=== PATIENT | female | born 1980 | race Caucasian/White ===

== ENCOUNTER 2021-08-21 20:31 | Emergency (ER) | payer OTHER ==
[~2021-08-21 20:31] MED LIST: CATAPRES0.2 MG PO; IBUPROFEN600 MG PO
[2021-08-21 21:52] LABS: HEMOGLOBIN 11.9 gm/dl (12.3-15.3); RED BLOOD COUNT 4.21 M/UL (4.00-5.10); WHITE BLOOD COUNT 8.9 K/UL (4.5-11.0)
[2021-08-21 22:19] LABS: BUN/CREATININE RATIO 17 (0-10)
[2021-08-22] MEDS ORDERED: PSEUDOEPHEDRINE30 MG PO (00:24)
[2021-08-22] MEDS ORDERED: FLONASE 0.05% N16 GM (00:24)
[2021-08-22] MEDS ORDERED: AMOXICILLIN500 MG PO (00:29)
== END 2021-08-22 00:50 | disposition home or self-care (01) ==
LOC: ER1 20:31
PROVIDERS: Physician Assistant
DX: J01.90 Acute sinusitis, unspecified (principal); Z20.822 Contact with and (suspected) exposure to COVID-19; I10 Essential (primary) hypertension; F17.200 Nicotine dependence, unspecified, uncomplicated; Z88.1 Allergy status to other antibiotic agents; Z88.2 Allergy status to sulfonamides
CPT/HCPCS: 0240U; 71045; 80053; 82550; 82553; 83874; 83880; 84484; 85025; 93005; 99284

== ENCOUNTER 2021-10-29 18:18 | Emergency (ER) | payer OTHER ==
[~2021-10-29 18:18] MED LIST changes: +AMOXICILLIN500 MG PO; +FLONASE 0.05% N16 GM; +PSEUDOEPHEDRINE30 MG PO
[2021-10-29 21:15] LABS: HEMOGLOBIN 11.2 gm/dl (12.3-15.3); RED BLOOD COUNT 4.08 M/UL (4.00-5.10); WHITE BLOOD COUNT 12.9 K/UL (4.5-11.0)
[2021-10-29 21:40] LABS: BUN/CREATININE RATIO 20 (0-10)
[2021-10-30] MEDS ORDERED: CLONIDINE HCL0.2 MG PO (02:48)
== END 2021-10-30 02:57 | disposition home or self-care (01) ==
LOC: ER1 18:18
PROVIDERS: Physician Assistant
DX: R07.89 Other chest pain (principal); I10 Essential (primary) hypertension; R51.9 Headache, unspecified; E11.9 Type 2 diabetes mellitus without complications; F17.200 Nicotine dependence, unspecified, uncomplicated; Z90.710 Acquired absence of both cervix and uterus; Z90.49 Acquired absence of other specified parts of digestive tract; Z88.2 Allergy status to sulfonamides; Z88.5 Allergy status to narcotic agent
CPT/HCPCS: 71045; 80053; 82550; 82553; 83874; 84484; 85025; 93005; 99284